=== PATIENT | male | born 1970 | race Caucasian/White ===

== ENCOUNTER 2021-07-15 12:02 | Inpatient (IN) | payer OTHER ==
[~2021-07-15] VITALS: Ht 190.5 cm; Wt 107.5 kg
[2021-07-15 12:46] LABS: RED BLOOD COUNT 5.4 M/UL (4.20-5.50); WHITE BLOOD COUNT 14.6 K/UL (4.5-11.0)
[2021-07-15 13:19] LABS: BUN/CREATININE RATIO 28 (0-10)
[2021-07-15] MEDS ORDERED: METFORMIN HCL500 MG PO (18:08)
[2021-07-15 23:32] LABS: BUN/CREATININE RATIO 28 (0-10)
[2021-07-16 05:02] LABS: HEMOGLOBIN 12.4 gm/dl (14.0-17.5)
[2021-07-16 05:06] LABS: RED BLOOD COUNT 4.8 M/UL (4.20-5.50)
[2021-07-16 05:25] LABS: BUN/CREATININE RATIO 31 (0-10)
[2021-07-16 13:37] LABS: BUN/CREATININE RATIO 28 (0-10)
[2021-07-16 14:24] LABS: CANDIDA ALBICANS Not Detected (Negative); CANDIDA KRUSEI Not Detected (Negative); CANDIDA TROPICALIS Not Detected (Negative); ESCHERICHIA COLI Not Detected (Negative); HAEMOPHILUS INFLUENZAE Not Detected (Negative); KLEBSIELLA OXYTOCA Not Detected (Negative); KLEBSIELLA PNEUMONIAE Not Detected (Negative); KPC-CARBAPENEM-RESISTANCE GENE Not Detected (Negative); PROTEUS Not Detected (Negative); PSEUDOMONAS AERUGINOSA Not Detected (Negative); SERRATIA MARCESANS Not Detected (Negative); STAPHYLOCOCCUS Not Detected (Negative); STAPHYLOCOCCUS AUREUS Not Detected (Negative); STREP AGALACTIAE (GROUP B) Not Detected (Negative); STREP PYOGENES (GROUP A) Not Detected (Negative); vanA/B (VANCOMYCIN RESIST GENE Not Detected (Negative)
--- NOTE | 2021-07-16 14:24 | NUR ---
SPECIMENS OBTAINED AND SENT TO LAB
[2021-07-16 15:58] LABS: STREPTOCOCCUS DETECTED (Negative)
[2021-07-17 05:27] LABS: HEMOGLOBIN 12.7 gm/dl (14.0-17.5); RED BLOOD COUNT 4.94 M/UL (4.20-5.50)
[2021-07-17 05:28] LABS: WHITE BLOOD COUNT 6.5 K/UL (4.5-11.0)
[2021-07-17 05:57] LABS: BUN/CREATININE RATIO 23 (0-10)
[2021-07-18 03:29] LABS: HEMOGLOBIN 12.8 gm/dl (14.0-17.5); RED BLOOD COUNT 5.07 M/UL (4.20-5.50); WHITE BLOOD COUNT 6.8 K/UL (4.5-11.0)
[2021-07-18 03:46] LABS: BUN/CREATININE RATIO 16 (0-10)
[2021-07-18 10:07] LABS: ADENOVIRUS F 40/41 Not Detected (Negative); ASTROVIRUS Not Detected (Negative); CAMPYLOBACTER Not Detected (Negative); CRYPTOSPORIDIUM Not Detected (Negative); E.COLI 0157 Not Detected (Negative); ENTAMOEBA HISTOLYTICA Not Detected (Negative); ENTEROAGGREGATIVE E.COLI (EAEC Not Detected (Negative); ENTEROPATHOGENIC E.COLI (EPEC) Not Detected (Negative); ENTEROTOXIGENIC E.COLI (ETEC) Not Detected (Negative); GIARDIA LAMBLIA Not Detected (Negative); NOROVIRUS GI/GII Not Detected (Negative); PLESIOMONAS SHIGELLOIDES Not Detected (Negative); ROTOVIRUS A Not Detected (Negative); SALMONELLA Not Detected (Negative); SAPOVIRUS Not Detected (Negative); SHIG/ENTEROINVAS.ECOLI (EIEC) Not Detected (Negative); SHIGA-LIK TOX.PRO.E.COLI (STEC Not Detected (Negative); VIBRIO Not Detected (Negative); VIBRIO CHOLERAE Not Detected (Negative); YERSINIA ENTEROCOLITICA Not Detected (Negative)
[2021-07-18 12:24] LABS: CLOSTRIDIUM DIFFICILE TOX A/B Not Detected (Negative)
--- NOTE | 2021-07-18 17:21 | NUR ---
PATIENT WANTS TO "GO OUTSIDE FOR SOME FRESH AIR". HE ASKED IF IT WAS OKAY TO DO THAT, AND I TOLD HIM I DID NOT THINK IT WAS A GOOD IDEA FOR HIM TO WALK OUTSIDE ON HIS FEET THE WAY THEY ARE. HE SAID HE "WALKS ON THEM ALL THE TIME" AND ASKED IF HE COULD GO. I EDUCATED HIM ON THE RISKS OF BEING OUTSIDE OF THE FACILITY, THAT HE COULD INJURE HIS FEET FURTHER, COULD FALL, ETC., AND HE STATED HE UNDERSTOOD.
[2021-07-19 06:14] LABS: HEMOGLOBIN 13.8 gm/dl (14.0-17.5); RED BLOOD COUNT 5.39 M/UL (4.20-5.50); WHITE BLOOD COUNT 7.6 K/UL (4.5-11.0)
[2021-07-19 06:33] LABS: BUN/CREATININE RATIO 17 (0-10)
[2021-07-20 06:43] LABS: RED BLOOD COUNT 5.13 M/UL (4.20-5.50); WHITE BLOOD COUNT 8.6 K/UL (4.5-11.0)
[2021-07-20 07:05] LABS: BUN/CREATININE RATIO 14 (0-10)
[2021-07-20] MEDS ORDERED: LEVOFLOXACIN750 MG PO (11:45)
[2021-07-20] MEDS ORDERED: HYSEPT473 ML EXT (11:45)
[2021-07-20] MEDS ORDERED: METFORMIN HCL500 MG PO (11:45)
[2021-07-20] MEDS ORDERED: THERAGRAN M TAB1 EA PO (11:45)
[2021-07-20] MEDS ORDERED: ZYVOX600 MG PO (11:45)
[2021-07-20] MEDS ORDERED: ASPIRIN EC81 MG PO (11:53)
--- NOTE | 2021-07-20 13:57 | NUR ---
dr. lovelace on the floor seeing patient and he spoke to the patient. received instructions to perform wound care daily and since wound care was done earlier wound care was done that is due today. will also provide wound care supplies to patient (per dr. lovelace/bryn cardozo ) instructions.
--- NOTE | 2021-07-20 15:48 | NUR ---
wound care supplies provided as instructed to give patient by dr. lovelace and bryn cardozo.
== END 2021-07-20 18:20 | disposition home or self-care (01) | DRG 264 ==
LOC: ER1 12:02 → CDU 19:00 → M/S 19:00
PROVIDERS: Student in an Organized Health Care Education/Training Program; ADMIT Internal Medicine
PROC: 0JBR0ZZ Excision of Left Foot Subcutaneous Tissue and Fascia, Open Approach (ICD-10-PCS; principal; 2021-07-16)
PROC: 0JBQ0ZZ Excision of Right Foot Subcutaneous Tissue and Fascia, Open Approach (ICD-10-PCS; 2021-07-16)
DX: E11.52 Type 2 diabetes mellitus with diabetic peripheral angiopathy with gangrene (principal); G93.41 Metabolic encephalopathy; I96 Gangrene, not elsewhere classified; E87.1 Hypo-osmolality and hyponatremia; L03.116 Cellulitis of left lower limb; L03.115 Cellulitis of right lower limb; M86.8X7 Other osteomyelitis, ankle and foot; L97.519 Non-pressure chronic ulcer of other part of right foot with unspecified severity; Z20.822 Contact with and (suspected) exposure to COVID-19; L97.529 Non-pressure chronic ulcer of other part of left foot with unspecified severity; B95.62 Methicillin resistant Staphylococcus aureus infection as the cause of diseases classified elsewhere; R19.7 Diarrhea, unspecified; E11.65 Type 2 diabetes mellitus with hyperglycemia; F17.210 Nicotine dependence, cigarettes, uncomplicated; R91.8 Other nonspecific abnormal finding of lung field; R59.1 Generalized enlarged lymph nodes; E11.69 Type 2 diabetes mellitus with other specified complication; Z88.0 Allergy status to penicillin; Z88.2 Allergy status to sulfonamides; Z83.3 Family history of diabetes mellitus; Z89.422 Acquired absence of other left toe(s); Z79.899 Other long term (current) drug therapy; Z89.421 Acquired absence of other right toe(s)
CPT/HCPCS: 36415; 70450; 71045; 73721; 80048; 80053; 80202; 80307; 81001; 82009; 82436; 82533; 82550; 82553; 82803; 82962; 83036; 83605; 83735; 83880; 83935; 84132; 84133; 84300; 84439; 84443; 84484; 84550; 85025; 85610; 85652; 86140; 87040; 87070; 87077; 87150; 87186; 87205; 87324; 87449; 87507; 93005; 93925; 96374; 99285; G0480; J0696; J1335; J1650; J2405; J3370; J7030; J7070; Q9967